=== PATIENT | female | born 1945 | race Caucasian/White ===

== ENCOUNTER → 2016-11-01 | Day surgery (SDC) | payer OTHER ==
[~2016-11-01] MED LIST: BIOTIN10000 MC1 PO; ESTRATEST H S; FIBER THERAPY0.52 GM PO; GLUCOSAMIN-CHO1 EACH PO; KRILL OIL500 MG PO; PRILOSEC PO; PROBIOTIC DIGE1 EACH PO; VIT B-12 PO; VITAMIN D35000 UNI1 PO; ZYRTEC PO; [UNRECOGNIZED DRUG - OTHER] PO
--- NOTE | ~2016-11-01 | OR ---
Unit #: [id number] #: [id number] Patient: TED REYES [id number] [address] [place], [place] [address] [id number] MR#: [id number] NAME: TED REYES. ROOM: Date of Procedure: 11/01/2016 Admission Date: 11/01/2016 Surgeon: Will Joseph M.D. : 1945 Attending Physician: Will Joseph M.D. Primary Care Physician: Jg Lawson M.D. OPERATIVE REPORT PREOPERATIVE DIAGNOSIS Screening colonoscopy. POSTOPERATIVE DIAGNOSIS Screening colonoscopy. PROCEDURE PERFORMED Colonoscopy to cecum. ANESTHESIA Monitored anesthesia care. FINDINGS The patient was found to have sigmoid diverticulosis, mild internal hemorrhoids. SPECIMENS None. COMPLICATIONS None apparent. CONDITION The patient tolerated the procedure well. INDICATIONS FOR PROCEDURE The patient is a 71-year-old white female, who presents at this time for screening colonoscopy. DESCRIPTION OF PROCEDURE After obtaining informed consent, the patient was brought to the endoscopy suite and after adequate monitored anesthesia care, had the colonoscope placed through the anus and slowly advanced to the level of the cecum without difficulty with lumen always in view. The cecum was normal as was the ileocecal valve. The ascending colon was normal as was the hepatic flexure, transverse colon, splenic flexure, and proximal descending colon. Beginning in the mid descending colon and extended distally to sigmoid colon, there was moderate diverticulosis present. There were no inflammatory changes. The rectosigmoid and rectum were all within normal limits. On retroflexing in the rectum to the anorectal junction, there was some mild internal hemorrhoids seen. The scope was removed without difficulty. The patient tolerated the procedure well and went from the Unit #: [id number] #: [id number] Patient: TED REYES endoscopy suite to recovery area in stable condition. RECOMMENDATIONS High-fiber diet, lots of liquids, tucks or wipes p.r.n. Diverticular sheet given. Follow up p.r.n. Dictated by... Mary Hillman/tamiko TD: 11/01/2016 13:49 JOB #: [id number] [facility] OPERATIVE REPORT Page 1 of 1 X Will Joseph MD PROCEDURE OPERATIVE NOTE
== END | disposition home or self-care (01) ==
LOC: COPS 09:32
DX: Z12.11 Encounter for screening for malignant neoplasm of colon (principal); K57.30 Diverticulosis of large intestine without perforation or abscess without bleeding; K64.8 Other hemorrhoids; Z87.442 Personal history of urinary calculi; Z88.6 Allergy status to analgesic agent; Z79.899 Other long term (current) drug therapy; Z90.49 Acquired absence of other specified parts of digestive tract; Z98.84 Bariatric surgery status; Z90.710 Acquired absence of both cervix and uterus; Z98.890 Other specified postprocedural states